=== PATIENT | female | born 1960 ===

== ENCOUNTER 2020-05-31 11:06 | Outpatient (CLI) | payer BC ==
[2020-05-31] MEDS ORDERED: Iopamidol-370 76% 500 ML 1 ML ONE (12:09)
== END 2020-05-31 11:07 | disposition home or self-care (01) ==
LOC: BICCT 11:06
PROVIDERS: ATTEND Physician Assistant Medical
DX: K59.00 Constipation, unspecified (principal); R10.32 Left lower quadrant pain; R10.33 Periumbilical pain; R11.0 Nausea; K76.89 Other specified diseases of liver; N28.9 Disorder of kidney and ureter, unspecified
CPT/HCPCS: 74177; Q9967